=== PATIENT | female | born 2005 | race Caucasian/White ===

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

== ENCOUNTER 2024-06-27 01:25 | Emergency (ER) | payer OTHER, SELFPAY ==
--- OUTSIDE RECORDS SUMMARY | 2024-06-27 01:27 | XMS_ITS | Referral Summary ---
Author Organization [facility] Address [address] [place] [id number] Care Team Providers Care Space Operations Officer Name Role Phone Debra Mcfarlane MD Primary Care Provider [phone] Ai Saleem PA-C Unavailable [phone] 1 Medications Vitamin D, Ergocalciferol, 1.25 mg (50,000 units) capsuleIndicati ons:Vitamin D deficiency TAKE 1 CAPSULE BY MOUTH 1 TIME A WEEK 8 capsule 1 12/02/2022 Active Active Problems Problem Noted Date Diagnosed Date Iron deficiency anemia 07/27/2022 Screening for STDs (sexually transmitted disease s) 06/27/2022 Vitamin D deficiency 06/27/2022 Frequency of micturition 06/27/2022 Screening for measles 06/27/2022 Immunizations Immunization Administration Dates Next Due Tdap 08/17/2014 Social History Tobacco Use Types Packs/Day Years Used Date Smoking Tobacco: Never Smokeless Tobacco: Never Tobacco Cessation:Counseling Given: No Alcohol Use Standard Drinks/Week Comments Never 0 (1 standard drink = 0.6 oz pur e alcohol) PHQ-2 Answer Date Recorded Initial depression screening score: 0 07/27/2022 Inadequate Housing Answer Date Recorded Social Determinants: Housing (Overall Score Help er) 0 06/26/2022 Sexually Active Control Partners Comments Never Comments Unknown Sex and Gender Information Value Date Recorded Sex Assigned at Not on file Legal Sex Female 11:38 AM HIV COUNSELOR Gender Identity Not on file Sexual Orientation Not on file Last Filed Vital Signs Vital Sign Reading Time Taken Comments Blood Pressure 123/80 07/27/2022 10:48 AM CDT Pulse 81 07/27/2022 10:48 AM CDT Temperature 36.7 C (98 F) 07/27/2022 10:48 AM CDT Respiratory Rate 18 07/27/2022 10:48 AM CDT Oxygen Saturation 98% 07/27/2022 10:48 AM CDT Inhaled Oxygen Concentration - - Weight 55.8 kg (123 lb) 07/27/2022 10:48 AM CDT Height 157.5 cm (5' 2) 07/27/2022 10:48 AM CDT Body Mass Index 22.5 07/27/2022 10:48 AM CDT Plan of Treatment Not on file Procedures Procedure Name Priority Date/Time Associated Diagnosis Comments CHLAMYDIA/N. GONORRHOEAE RNA, TMA, UROGENITAL Routine 06/26/2022 10:00 PM CDT from Last 3 Months or Most Recently Relevant to Health Maintenance Results * Chlamydia and Gonorrhoeae RNA, TMA, Urogenital ([facility]/Other) (06/26/2022 10:00 PM CDT) Pathologist [facility] Gonorrhea PCR NEGATIVE NEGATIVE [facility] Chlamydia Pcr NEGATIVE NEGATIVE [facility] 06/26/2022 10:0 0 PM CDT 06/26/2022 10:41 PM CDT Debra Mcfarlane MD [facility] LAB MICRO-GEN ORDERAB LES Final Result [facility] [address] [place] [address] from Last 3 Months or Most Recently Relevant to Health Maintenance Insurance [facility] Member Subscriber Plan / Payer (Ef fective 2022-Present) Name:Charity Hampton Relation to Subscriber:Self Name:Charity Hampton Payer ID:Not on file Group ID:Not on file Type:[id number] Address: [place] [id number] [address] [id number] Care Teams Space Operations Officer Relationship Specialty Start Date End Date Debra Mcfarlane MD [address], [place] [address] PCP - General Internal Medicine 06/24/22 Ai Saleem PA-C [address], [place] [address] Physician Laundry Agent Group/Single-Specialty 06/24/22
--- OUTSIDE RECORDS SUMMARY | 2024-06-27 01:27 | XMS_ITS | Clinical Summary ---
Author Organization [facility] Address [address] [place] [address] Care Team Providers Care Mixer Helper Name Role Phone Debra Mcfarlane MD Primary Care Provider [phone] Ai Saleem PA-C Unavailable [phone] Medications Vitamin D, Ergocalciferol, 1.25 mg [...] Immunization Administration Dates Next Due Tdap 08/17/2014 Family History Medical History Relation Comments Patient is unaware of any medical problems Fathe r Patient is unaware of any medical problems Mothe r Relation Status Comments Father Alive Mother Alive Social History Tobacco Use Types Packs/Day Years [...] on file 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 Gender Identity Not on file Sexual Orientation Not on file Obstetrics History Para Term AB IAB SAB Ectopic Molar Multiple Living Live Births 0 0 0 0 0 0 0 0 0 0 0 0 Last Filed Vital Signs Vital Sign Reading [...] 07/27/2022 10:48 AM CDT Plan of Treatment Health Maintenance Due Date Last Done Comments Varicella Vaccine (1 of 2 - 13+ 2-dose series) 02/10/2016 HPV Vaccine (1 - 3-dose series) 2018 Meningococcal Serogroup B Va ccine (1 of 2 - Standard) 2019 Hepatitis B Vaccine (1 of 3 - 19+ 3-dose series) 2022 Annual Physical (ages 3 - 21) 06/27/2023 06/26/2022 Chlamydia and Gonorrhea Scre ening (if sexually active) 06/27/2023 06/26/2022 Depression Screening 07/28/2023 07/27/2022 COVID-19 Vaccine ( - 2023-2 5 season) 2023 Cervical Cancer Screening 02/10/2024 Pap Smear 02/10/2024 DTaP/Tdap/Td Vaccine (2 - Td or Tdap) 08/17/2024 08/17/2014 Influenza Vaccine (Season Ended) 2024 Hepatitis A Vaccine Aged Out No longe r eligible based on patient's age to complete this topic Meningococcal Vaccine Aged Out No gibson justino eligible based on patient's age to complete this topic Pneumococcal Vaccine 0-49 Aged Out No longer eligible based on patient's age to complete this topic Procedures Procedure Name Priority Date/Time Associated Diagnosis Comments CHLAMYDIA/N. GONORRHOEAE RNA, TMA, UROGENITAL Routine 06/26/2022 10:00 PM CDT from Last 3 Months or Most Recently Relevant to Health Maintenance Results * Chlamydia and Gonorrhoeae RNA, TMA, Urogenital ([facility]/Other) (06/26/2022 10:00 PM CDT) Gonorrhea PCR NEGATIVE NEGATIVE [facility] Chlamydia Pcr NEGATIVE NEGATIVE [facility] 06/26/2022 10:0 0 PM CDT 06/26/2022 10:41 PM CDT Debra Mcfarlane MD BKR LAB MICRO-GEN ORDERAB LES Final Result [facility] [address] [place] [address] from Last 3 Months or Most Recently Relevant to Health Maintenance Insurance [facility] Member Subscriber Plan / Payer (Ef fective 2022-Present) Name:HamptonCharity Relation to Subscriber:Self Name:Charity Hampton Payer ID:Not on file Group ID:Not on file Type:T19 Address: [facility] [id number] [place] [address] Care Teams Mixer Helper Relationship Specialty Start Date End Date Debra Mcfarlane MD [address] [place] [address] PCP - General Internal Medicine 06/24/22 Ai Saleem PA-C [address] [place] [address] Physician Waiter/Waitress Cabin Class Group/Single-Specialty 06/24/22
[2024-06-27 01:32] VITALS: BP 130/88; PULSE 106; RESP 18; TEMP 36.9; O2SAT 96; BMI 26.1
--- NOTE | 2024-06-27 01:53 | ED.GENADULT ---
HPI - General Adult General Chief complaint: Laceration/Wound Stated complaint: laceration on left thigh Time Seen by Provider: 06/27/24 01:31 History of Present Illness HPI narrative: 19-year-old female with notable history of prior depression had a smattering of alcohol and several marijuana edibles this evening. She is extremely ganglion triage in reports that she cut on her thigh which is not terribly atypical for her with the intent of ?releasing tension. She denies any suicidal thoughts. She denies any need for mental health hospitalization. She has been in a place where that was a frequent problem for her, prior ER notes reviewed from 22/04. She reports that things have been a pretty good place and this is not very typical of her lately. Friend accompanies her and agrees that this seemed impulsive, not terribly deep and patient has not been expressing intent to end her life. No recent illness. No other intoxicating substances besides what was known. Past medical history notable for anxiety, reports that her only home med is hydroxyzine. No allergies. ROS is notable for a superficial laceration to the left upper thigh that they think may require stitches. Related Data Home Medications ?Medication ?Instructions ?Recorded ?Confirmed hydroxyzine pamoate 25 mg capsule 25 mg PO QHS 06/27/24 06/27/24 Allergies Allergy/AdvReac Type Severity Reaction Status Date / Time No Known Drug Allergies Allergy Verified 12/11/21 12:25 [facility] Social History Smoking Status: Never smoker Do you use any of these nicotine containing products: None Second hand tobacco smoke exposure: No How often do you have a drink containing alcohol: monthly or less How many standard drinks containing alcohol do you have on a typical day: 1 or 2 How often do you have six or more drinks on one occasion: Never AUDIT-C Alcohol total score: 1 Non-prescribed substance use: marijuana (any form) service: No Exam Const: Vital Signs, click to edit/add: Vital Signs - 24 hr 06/27/24 01:32 Temperature 98.4 F Pulse Rate [Right Pulse Oximeter] 106 H Respiratory Rate 18 Blood Pressure [Ri ght Upper Arm] 130/88 Pulse Oximetry 96 Oxygen Delivery Me thod Room Air Documenting provider has reviewed patient's vital signs: yes Common normals: alert Other: Laughing in triage and when I am not in the room. Answers questions appropriately, makes good eye contact. Interactive. Appears well nourished and well hydrated. Good report with accompanying friend HENMT: Common normals: normocephalic, moist oral mucous membranes and oropharynx normal Head and scalp: normocephalic Eye: Other: Eyes with injected appearance of cannabis use but otherwise pupils are equal and round with normal visual tracking. Neck & C-Spine: General: normal visual inspection Resp: Common normals: normal respiratory effort Effort & inspection: able to speak in complete sentences Extremity: Other: Left upper ventral thigh, no where near any of the major vessels or neurovascular bundles has a 4 cm long dermal thickness horizontal laceration that does gape about 6 mm total at the middle. No active bleeding. About a dozen superficial lacerations with no gaping and no bleeding as well. Several old appearing lesions with very superficial light scarring. Counter tension on the wound does approximate well. Because of this I think should be a good candidate for Steri-Strips. Neuro: Sensorium/orientation: alert Speech: speech normal Motor exam: strength 5/5 throughout, no tremor noted and no movement abnormalities noted Psych: Appearance: grossly normal Attitude: engaged Activity/motor behavior: appropriate eye contact Insight: fair Judgement: fair Skin: Narrative: Superficial cutting scars most old, new lesions on left upper thigh as described above, 1 gapes and will need attention. Course Course ED Course: 19-year-old female with impulsive cutting behavior tonight. No signs of immediate threat to self or suicidal ideation. Intoxicated but has reliable friend. Counseled patient on the gaping lesion, recommended closure. Since I can get good counter traction on I think she is a good candidate for Steri-Strips. Patient was agreeable to this, verbal consent obtained. Procedure: Area was cleansed with alcohol wipe and then Mastisol was applied either side of the wound. 1 cm Steri-Strips wide by 4 cm long were applied, 1 on each side near the center of the wound, once these had set, they were pulled for counter traction to close the wound with good result. Additional Steri-Strips on each side was then applied for additional support, well tolerated. Wound closed nicely and remains hemostatic. Patient counseled let this dry per about 10 minutes and she can get dressed. Try to let it dry completely for a couple of hours and then she may shower as usual. Typical care discussed, written instructions provided. I asked again if she thinks she needs assistance with any mental health issues or for friend believes that she does not able decline and agree that she is safe. Patient will be discharged with friend. Vital Signs Vital signs: Initial Vital Signs Temperature 98.4 F 06/27/24 01:32 Temperature Source Temporal Artery Scan 06/27/24 01:32 Pulse Rate 106 H 06/27/24 01:32 Respiratory Rate 18 06/27/24 01:32 Blood Pressure 130/88 06/27/24 01:32 Blood Pressure Mean 102 06/27/24 01:32 Blood Pressure Position Sitting 06/27/24 01:32 Pulse Oximetry 96 06/27/24 01:32 Oxygen Delivery Method Room Air 06/27/24 01:32 Vital Signs Temperature 98.4 F 06/27/24 01:32 Pulse Rate 106 H 06/27/24 01:32 Respiratory Rate 18 06/27/24 01:32 Blood Pressure 130/88 06/27/24 01:32 Pulse Oximetry 96 06/27/24 01:32 Oxygen Delivery Method Room Air 06/27/24 01:32 Temperature 98.4 F 06/27/24 01:32 Pulse Rate 106 H 06/27/24 01:32 Respiratory Rate 18 06/27/24 01:32 Blood Pressure 130/88 06/27/24 01:32 Pulse Oximetry 96 06/27/24 01:32 Oxygen Delivery Method Room Air 06/27/24 01:32 Discharge Plan Discharge Clinical Impression: Laceration Patient Disposition: Home w/ Parent or Adult Condition: Improved Instructions: Steristrips (ED) Additional Instructions: As we discussed, there were no signs of any injury with this cut to the deeper structures, blood vessels or nerves. We were able to close the wound with Steri-Strips. This will reduce tension and pulling on the wound, reducing your chance of scars. This trips will stay on for about 5 days and then will fall off gradually. No need to apply any antibiotic ointment or any special treatment. You can shower as normal with these in place after they fully dry in a couple of hours. Do not pick at the edges. If things are peeling considerably after 5 days, you may gently peel the remainder away but not sooner. It is okay if they stay on up to 10 days. It is okay to use Tylenol and/or ibuprofen for mild discomfort associated with the cuts. Activity Level: Activity as Tolerated Discharge Diet: Regular Prescriptions: No Action hydroxyzine pamoate 25 mg capsule 25 mg PO QHS Follow Up/Referrals: Provider,Not a Local [Primary Care Provider] - Stand Alone Forms: [employer] Info Instructions
--- OUTSIDE RECORDS SUMMARY | 2024-06-27 02:05 | XMS_ITS | Referral Summary ---
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 Gender Identity Not on file Sexual Orientation [...] Urogenital ([facility]) (06/26/2022 10:00 PM CDT) Pathologist [facility] Gonorrhea PCR NEGATIVE NEGATIVE [facility] Chlamydia Pcr NEGATIVE NEGATIVE [facility] 06/26/2022 10:0 0 PM CDT 06/26/2022 10:41 PM CDT Debra Mcfarlane MD BKR LAB MICRO-GEN ORDERAB LES Final Result [facility] [address] [place] [address] from Last 3 Months or Most Recently Relevant to Health Maintenance Insurance [facility] Member Subscriber Plan / Payer (Ef fective 2022-Present) Name:Charity Hampton Relation to Subscriber:Self Name:Charity Hampton Payer ID:Not on file Group ID:Not on file Type:T19 Address: [place] [id number] [place] [address] Care Teams Baker Second Relationship Specialty Start Date End Date Debra Mcfarlane MD [address] [place], [place] [id number] PCP - General Internal Medicine 06/24/22 Ai Saleem PA-C [address] [place], [place] [address] Physician Electrical Equipment Assembler Group/Single-Specialty 06/24/22
--- OUTSIDE RECORDS SUMMARY | 2024-06-27 02:05 | XMS_ITS | Clinical Summary ---
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 Gender Identity Not on file Sexual Orientation [...] PCR NEGATIVE NEGATIVE [facility] Chlamydia Pcr NEGATIVE NEGATIVE [facility] 06/26/2022 10:0 0 PM CDT 06/26/2022 10:41 PM CDT Debra Mcfarlane MD BKR LAB MICRO-GEN ORDERAB LES Final Result [facility] [address] [place] [address] from Last 3 Months or Most Recently Relevant to Health Maintenance Insurance [facility] Member Subscriber Plan / Payer (Ef fective 2022-Present) Name:HamptonCharity Relation to Subscriber:Self Name:Charity Hampton Payer ID:Not on file Group ID:Not on file Type:T19 Address: [facility] [id number] [place] [address] Care Teams Drainage Inspector Relationship Specialty Start Date End Date Debra Mcfarlane MD [address] [place] [address] PCP - General Internal Medicine 06/24/22 Ai Saleem PA-C [address] [place] [address] Physician Stained Glass Glazier Group/Single-Specialty 06/24/22
== END 2024-06-27 02:09 | disposition home or self-care (01) ==
LOC: ED 02:03
PROVIDERS: Emergency Provider Family Medicine
DX: S71.112A Laceration without foreign body, left thigh, initial encounter (principal); W26.9XXA Contact with unspecified sharp object(s), initial encounter
CPT/HCPCS: 99283